=== PATIENT | male | born 1940 | race Caucasian/White ===

== ENCOUNTER → 2023-06-26 07:16 | Outpatient (REF) | payer OTHER, SELFPAY | LOC: MRI 3T 07:16 | PROVIDERS: ATTENDING PHYSICIAN Family Medicine | DX: R26.89 Other abnormalities of gait and mobility (principal); Z86.73 Personal history of transient ischemic attack (TIA), and cerebral infarction without residual deficits; H53.9 Unspecified visual disturbance | CPT/HCPCS: 70551 ==

== ENCOUNTER → 2025-01-17 14:19 | Outpatient (REF) | payer OTHER, SELFPAY | LOC: RAD 14:19 | PROVIDERS: ATTENDING PHYSICIAN Family Medicine | DX: M79.672 Pain in left foot (principal); M25.572 Pain in left ankle and joints of left foot | CPT/HCPCS: 73610; 73630 ==